=== PATIENT | female | born 1965 | race Caucasian/White ===

== ENCOUNTER 2020-03-28 20:02 | Emergency (ER) | payer MEDICAID, MEDICARE ==
[~2020-03-28] VITALS: Ht 154.9 cm; Wt 79.7 kg
[~2020-03-28 20:02] MED LIST: INSU100V5 SQ-INSULIN; INSU100V8 SQ
--- NOTE | 2020-03-28 20:31 | NUR ---
PT TO ED WITH WHITE, DENIES N/V OR SENSITIVITY TO LIGHT. PT REPORTS HX OF DIABETES, HASNT DONE BS CHECK SINCE FEBRUARY. DENIES ANY OTHER C/O AT THIS TIME. TRIED NORCO AND CBD AT HOME WITHOUT RELEIF. PT CONNECTED TO MONITORING, CALL LIGHT WITHIN REACH. ALL SAFETY MEASURES IN PLACE.
--- NOTE | 2020-03-28 20:38 | NUR ---
PT NOW ALSO REPORTING VAGINAL ITCHING AND BURNING SENSATION WITH WHITE DISCHARGE.
[2020-03-28] MEDS ORDERED: SODIUM CHLORIDE FLUSH 10ML SYR IVF ONE (21:00)
[2020-03-28] MEDS ORDERED: SODIUM CHLORIDE 0.9% 1,000ML IVBOLUS ONE (21:00)
[2020-03-28] MEDS ORDERED: FLUCONAZOLE 100 MG TABLET PO ONE (21:00)
[2020-03-28] MEDS ORDERED: KETOROLAC 30 MG/1 ML IVPush ONE (21:00)
[2020-03-28] MEDS ORDERED: DIPHENHYDRAMINE 50 MG/ML, 1ML IVPush ONE (21:00)
[2020-03-28] MEDS ORDERED: PROCHLORPERAZINE 5 MG/ML, 2ML IVPush ONE (21:00)
[2020-03-28] MEDS ORDERED: PROCHLORPERAZINE 5 MG/ML, 2ML ONE (21:19)
[2020-03-28] MEDS ORDERED: DIPHENHYDRAMINE 50 MG/ML, 1ML ONE (21:20)
[2020-03-28] MEDS ORDERED: FLUCONAZOLE 100 MG TABLET ONE (21:20)
[2020-03-28] MEDS ORDERED: KETOROLAC 30 MG/1 ML ONE (21:20)
[2020-03-28 22:13] LABS: BASOPHILS # (AUTO) 0.02 x10^3/uL (0-0.1); BASOPHILS % (AUTO) 1 % (0-1); EOSINOPHILS # (AUTO) 0.09 x10^3/uL (0-0.4); EOSINOPHILS % (AUTO) 2 % (1-7); LYMPHOCYTES # (AUTO) 1.94 x10^3/uL (1-3.4); LYMPHOCYTES % (AUTO) 39 % (22-44); MD NO; MEAN CORPUSCULAR HEMOGLOBIN 28.4 pg (27.0-34.8); MEAN CORPUSCULAR HGB CONC 32.5 g/dL (32.4-35.8); MEAN CORPUSCULAR VOLUME 87.3 fL (80-100); MEAN PLATELET VOLUME 10.5 fL (7.4-10.4); MONOCYTES # (AUTO) 0.36 x10^3/uL (0.2-0.8); MONOCYTES % (AUTO) 7 % (2-9); NEUTROPHILS # (AUTO) 2.54 x10^3/uL (1.8-6.8); NEUTROPHILS % (AUTO) 51 % (42-75); PLATELET COUNT 136 x10^3/uL (130-400); RED BLOOD COUNT 4.66 x10^6/uL (3.82-5.3); RED CELL DISTRIBUTION WIDTH 12.8 % (9.6-15.2)
[2020-03-28 22:20] LABS: MICROSCOPIC AUTO
[2020-03-28 22:24] LABS: ALANINE AMINOTRANSFERASE 30 U/L (12-78); ALBUMIN 3.6 g/dL (3.4-5.0); ANION GAP 8 mmol/L (5-15); CALCIUM 8.6 mg/dL (8.5-10.1); CHLORIDE 103 mmol/L (98-107); CREATININE 1.07 mg/dL (0.55-1.02)
[2020-03-28 22:27] LABS: ALKALINE PHOSPHATASE 104 U/L (45-117); BILIRUBIN,TOTAL 0.6 mg/dL (0.2-1.0); TOTAL PROTEIN 7.9 g/dL (6.4-8.2)
--- NOTE | 2020-03-28 22:35 | NUR ---
PT RESTING ON [facility]. MONTORING IN PLACE, CALL LIGHT WITHIN REACH.
--- NOTE | 2020-03-28 22:57 | NUR ---
[place] RN: FSBS completed. Provider, Yadira, aware of FSBS 316. No new orders received and this time.
[2020-03-28] MEDS ORDERED: hydrALAzine 20 MG/ML, 1ML IV ONE (23:00)
[2020-03-28] MEDS ORDERED: hydrALAzine 20 MG/ML, 1ML ONE (23:01)
--- NOTE | 2020-03-28 23:05 | NUR ---
PT TO IMAGING AT THIS TIME.
[2020-03-29 00:33] VITALS: BP 160/61
== END 2020-03-29 00:35 | disposition home or self-care (01) ==
LOC: ED 22:35
DX: R51 Headache (principal); E11.65 Type 2 diabetes mellitus with hyperglycemia; B37.3 Candidiasis of vulva and vagina; J32.0 Chronic maxillary sinusitis; I10 Essential (primary) hypertension; M79.7 Fibromyalgia
CPT/HCPCS: 36415; 70450; 80053; 81001; 82962; 85025; 96361; 96374; 96375; 99285; J0360; J0780; J1200; J1885; J7030

== ENCOUNTER 2020-04-05 11:36 | Emergency (ER) | payer MEDICARE ==
[~2020-04-05] VITALS: Ht 154.9 cm; Wt 78.1 kg
--- NOTE | 2020-04-05 12:27 | NUR ---
NUTRITION PROFESSOR: PT TO ROOM FROM LOBBY
--- NOTE | 2020-04-05 12:27 | NUR ---
PT WALKED BACK TO ROOM
--- NOTE | 2020-04-05 13:23 | NUR ---
REPORT RECIEVED FROM FIONA LEBLANC. ASSUMED CARE OF PT. PT JONATHAN RESTING ON GURNEY. NO ACUTE DISTRESS NOTED. CALL LIGHT WITHIN REACH. WILL CONT TO MONITOR PT.
--- NOTE | 2020-04-05 14:07 | NUR ---
THIS IS A 55 YO FEMALE C/O EXACERBATION OF CHRONIC BACK/LEG PAIN. PT AO X 4. SKIN WARM AND DRY. RESP EVEN AND UNLABORED. PT AWARE WE ARE WAITING FOR ERMD EVAL/ORDERS.
[2020-04-05] MEDS ORDERED: KETOROLAC 30 MG/1 ML ONE (14:26)
[2020-04-05] MEDS ORDERED: METHOCARBAMOL 750 MG TABLET ONE (14:26)
[2020-04-05] MEDS ORDERED: METHOCARBAMOL 750 MG TABLET PO ONE (14:30)
[2020-04-05] MEDS ORDERED: KETOROLAC 30 MG/1 ML IM ONE (14:30)
[2020-04-05 15:06] VITALS: BP 171/89
== END 2020-04-05 15:08 | disposition home or self-care (01) ==
LOC: ED 14:50
DX: G89.29 Other chronic pain (principal); M54.5 Low back pain; I10 Essential (primary) hypertension; E11.9 Type 2 diabetes mellitus without complications
CPT/HCPCS: 96372; 99283; J1885

== ENCOUNTER 2020-05-22 11:04 | Emergency (ER) | payer MEDICAID, MEDICARE ==
[~2020-05-22] VITALS: Ht 157.5 cm; Wt 76.4 kg
[2020-05-22] MEDS ORDERED: SODIUM CHLORIDE 0.9% 1,000ML IVBOLUS ONE (11:30)
[2020-05-22] MEDS ORDERED: SODIUM CHLORIDE FLUSH 10ML SYR IVF ONE (11:30)
[2020-05-22] MEDS ORDERED: IBUP-1223 PO (11:50)
[2020-05-22] MEDS ORDERED: HYDR-3246 PO (11:50)
--- NOTE | 2020-05-22 11:54 | NUR ---
Pt here for prescription for glucose test strips. States that she is new to the area and has not established a PCP. Pt arrives hyperglycemic and hypertensive. Denies N/V. States chronic back pain which is controlled with medication. Pt has no comlaints at this time. Fluids infusing, blood sent to lab. Provided with blanket. Will monitor.
[2020-05-22 11:55] LABS: BASOPHILS # (AUTO) 0.01 x10^3/uL (0-0.1); BASOPHILS % (AUTO) 0 % (0-1); EOSINOPHILS # (AUTO) 0.09 x10^3/uL (0-0.4); EOSINOPHILS % (AUTO) 2 % (1-7); LYMPHOCYTES # (AUTO) 1.39 x10^3/uL (1-3.4); LYMPHOCYTES % (AUTO) 26 % (22-44); MD NO; MEAN CORPUSCULAR HEMOGLOBIN 29.6 pg (27.0-34.8); MEAN CORPUSCULAR HGB CONC 34.2 g/dL (32.4-35.8); MEAN CORPUSCULAR VOLUME 86.5 fL (80-100); MEAN PLATELET VOLUME 10.8 fL (7.4-10.4); MONOCYTES # (AUTO) 0.22 x10^3/uL (0.2-0.8); MONOCYTES % (AUTO) 4 % (2-9); NEUTROPHILS # (AUTO) 3.55 x10^3/uL (1.8-6.8); NEUTROPHILS % (AUTO) 68 % (42-75); PLATELET COUNT 130 x10^3/uL (130-400); RED BLOOD COUNT 4.81 x10^6/uL (3.82-5.3); RED CELL DISTRIBUTION WIDTH 12.4 % (9.6-15.2)
--- NOTE | 2020-05-22 12:31 | NUR ---
Pt sleeping, appears comfortable.
[2020-05-22 12:35] LABS: ALBUMIN 3.1 g/dL (3.4-5.0); ANION GAP 5 mmol/L (5-15); CALCIUM 8.4 mg/dL (8.5-10.1); CHLORIDE 108 mmol/L (98-107); CREATININE 0.81 mg/dL (0.55-1.02)
[2020-05-22 13:02] LABS: ACETONE, SERUM Trace (Negative)
[2020-05-22 13:38] VITALS: BP 160/75
== END 2020-05-22 15:40 | disposition home or self-care (01) ==
LOC: ED 14:45
DX: E11.65 Type 2 diabetes mellitus with hyperglycemia (principal); I10 Essential (primary) hypertension; M79.7 Fibromyalgia; Z91.19 Patient's noncompliance with other medical treatment and regimen
CPT/HCPCS: 36415; 80048; 82010; 82040; 82962; 85025; 96360; 99283; J7030

== ENCOUNTER 2020-06-19 09:24 | Outpatient (CLI) | payer MEDICARE ==
[~2020-06-19 09:24] MED LIST changes: +HYDR-3246 PO; +IBUP-1223 PO
== END 2020-06-19 23:59 | disposition home or self-care (01) ==
LOC: RAD 09:24
DX: I66.22 Occlusion and stenosis of left posterior cerebral artery (principal); M62.838 Other muscle spasm; I65.23 Occlusion and stenosis of bilateral carotid arteries; I67.5 Moyamoya disease
CPT/HCPCS: 70544; 70549; 70551; 72050

== ENCOUNTER 2020-07-04 16:24 | Emergency (ER) | payer MEDICARE ==
[~2020-07-04] VITALS: Ht 157.5 cm; Wt 79.6 kg
[2020-07-04 17:26] LABS: BASOPHILS % (AUTO) 1 % (0-1); EOSINOPHILS % (AUTO) 1 % (1-7); LYMPHOCYTES % (AUTO) 26 % (22-44); MD NO; MEAN CORPUSCULAR HEMOGLOBIN 28.8 pg (27.0-34.8); MEAN CORPUSCULAR HGB CONC 33.1 g/dL (32.4-35.8); MEAN PLATELET VOLUME 10.4 fL (7.4-10.4); MONOCYTES % (AUTO) 6 % (2-9); NEUTROPHILS % (AUTO) 66 % (42-75); PLATELET COUNT 164 x10^3/uL (130-400); RED BLOOD COUNT 4.63 x10^6/uL (3.82-5.3); RED CELL DISTRIBUTION WIDTH 12.7 % (9.6-15.2)
[2020-07-04 17:35] LABS: ALBUMIN 3.2 g/dL (3.4-5.0); ANION GAP 8 mmol/L (5-15); CHLORIDE 104 mmol/L (98-107)
[2020-07-04 17:40] LABS: ALANINE AMINOTRANSFERASE 17 U/L (12-78); ALKALINE PHOSPHATASE 88 U/L (45-117); BILIRUBIN,TOTAL 0.3 mg/dL (0.2-1.0); CREATININE 0.96 mg/dL (0.55-1.02); TOTAL PROTEIN 7.6 g/dL (6.4-8.2)
--- NOTE | 2020-07-04 18:44 | NUR ---
first contact with pt. pt c/o left sided neck pain. pt stated"i have a pinched nerve for 3 days. i can't use my neck. i also have a choronic back pain as well." pt denies any other sx. pt's aox4. resps even and unlabored. bp/spo2 monitors in place. call light within reach.
--- NOTE | 2020-07-04 18:51 | NUR ---
report given to pauline gonzalez.
[2020-07-04] MEDS ORDERED: BUPIVACAINE 0.25% ONE (19:10)
[2020-07-04] MEDS ORDERED: DIAZEPAM 5 MG TABLET ONE (19:10)
[2020-07-04] MEDS ORDERED: DIAZEPAM 5 MG TABLET PO ONE (19:30)
[2020-07-04] MEDS ORDERED: TRIAMCINOLONE ACETONIDE 40 MG/ML, 1ML IM ONE (19:30)
[2020-07-04] MEDS ORDERED: BUPIVACAINE/PF 0.5% INFIL ONE (19:30)
[2020-07-04 20:41] VITALS: BP 140/64
== END 2020-07-04 20:43 | disposition home or self-care (01) ==
LOC: ED 20:00
DX: S16.1XXA Strain of muscle, fascia and tendon at neck level, initial encounter (principal); E11.65 Type 2 diabetes mellitus with hyperglycemia; M62.838 Other muscle spasm; I10 Essential (primary) hypertension; G43.909 Migraine, unspecified, not intractable, without status migrainosus; M19.90 Unspecified osteoarthritis, unspecified site; G89.29 Other chronic pain; Z87.891 Personal history of nicotine dependence; X58.XXXA Exposure to other specified factors, initial encounter; Y93.89 Activity, other specified; Y92.89 Other specified places as the place of occurrence of the external cause; Y99.8 Other external cause status
CPT/HCPCS: 20552; 36415; 80053; 85025; 99284; J3301; S0020

== ENCOUNTER → 2020-07-05 | Outpatient (CLI) | payer MEDICARE | END | disposition home or self-care (01) | LOC: CFH 13:20 | PROVIDERS: ATTEND Nurse Practitioner Primary Care | DX: M51.36 Other intervertebral disc degeneration, lumbar region (principal) | CPT/HCPCS: 72148 ==

== ENCOUNTER 2020-07-15 16:56 | Emergency (ER) | payer MEDICARE ==
[~2020-07-15] VITALS: Ht 157.5 cm; Wt 77.1 kg
[2020-07-15 17:00] VITALS: BP 147/70
--- NOTE | 2020-07-15 17:55 | NUR ---
Patient/Caregiver given discharge instructions and they have confirmed that they understand the instructions. Patient ambulatory with steady gait.
== END 2020-07-15 17:57 | disposition home or self-care (01) ==
LOC: ED 17:16
DX: S16.1XXA Strain of muscle, fascia and tendon at neck level, initial encounter (principal); I10 Essential (primary) hypertension; E11.65 Type 2 diabetes mellitus with hyperglycemia; Z87.891 Personal history of nicotine dependence; W22.8XXA Striking against or struck by other objects, initial encounter; Y93.89 Activity, other specified; Y92.89 Other specified places as the place of occurrence of the external cause; Y99.8 Other external cause status
CPT/HCPCS: 99283

== ENCOUNTER 2020-12-28 19:36 | Emergency (ER) | payer MEDICARE, MEDICAID ==
[~2020-12-28] VITALS: Ht 157.5 cm; Wt 80.9 kg
[~2020-12-28 19:36] MED LIST changes: -HYDR-3246 PO; +HYDR-3248 PO
[2020-12-28 21:36] LABS: MEAN CORPUSCULAR HEMOGLOBIN 29.2 pg (27.0-34.8); MEAN CORPUSCULAR HGB CONC 33.8 g/dL (32.4-35.8); MEAN PLATELET VOLUME 10.1 fL (7.4-10.4); PLATELET COUNT 153 x10^3/uL (130-400); RED BLOOD COUNT 4.94 x10^6/uL (3.82-5.3); RED CELL DISTRIBUTION WIDTH 12.9 % (9.6-15.2)
[2020-12-28 21:48] LABS: ALBUMIN 3.6 g/dL (3.4-5.0); ANION GAP 5 mmol/L (5-15); CHLORIDE 99 mmol/L (98-107); CREATININE 1.01 mg/dL (0.55-1.02)
--- NOTE | 2020-12-28 22:00 | NUR ---
PT TO ROOM FROM LOBBY
[2020-12-28 22:29] LABS: MD YES
[2020-12-28] MEDS ORDERED: FLUCONAZOLE 100 MG TABLET PO ONE (22:30)
[2020-12-28 22:34] LABS: EOS#(MANUAL) 0.16 x10^3/uL (0.0-0.4); EOS% (MANUAL) 3 % (1-7); LYMPH#(MANUAL) 1.66 x10^3/uL (1-3.4); LYMPHS% (MANUAL) 32 % (22-44); METAMYELOCYTES# (MANUAL) 0.05 x10^3/uL (0-0); METAMYELOCYTES% (MANUAL) 1 % (0-1); MONOS#(MANUAL) 0.21 x10^3/uL (0.3-2.7); MONOS% (MANUAL) 4 % (2-9); REACTIVE LYMPHS # (MANUAL) 0.05 x10^3/uL (0-0); REACTIVE LYMPHS % (MANUAL) 1 % (0-0); SEG#(MANUAL) 3.07 x10^3/uL (1.8-6.8); SEGS% (MANUAL) 59 % (42-75)
[2020-12-28 22:35] LABS: <PLATELET ESTIMATE> ADEQUATE; <RBC MORPHOLOGY> NORMAL; LARGE PLATELETS 1+
[2020-12-28] MEDS ORDERED: FLUCONAZOLE 100 MG TABLET ONE (22:37)
--- NOTE | 2020-12-28 22:43 | NUR ---
pt ambulatory with steady gait to bathroom to provide urine sample.
[2020-12-28 23:05] LABS: MICROSCOPIC NOT IND
[2020-12-29 00:34] VITALS: BP 112/62
--- NOTE | 2020-12-29 00:34 | NUR ---
Patient given discharge instructions and they have confirmed that they understand the instructions. Patient to d/c desk with use of personal wheelchair. Pt verbalized understanding of d/c instructions.
== END 2020-12-29 00:43 | disposition home or self-care (01) ==
LOC: ED 20:06
DX: N89.8 Other specified noninflammatory disorders of vagina (principal); B37.3 Candidiasis of vulva and vagina; R30.0 Dysuria; I10 Essential (primary) hypertension; E11.65 Type 2 diabetes mellitus with hyperglycemia
CPT/HCPCS: 36415; 80048; 81003; 82040; 85025; 99283

== ENCOUNTER 2021-01-16 10:54 | Emergency (ER) | payer MEDICARE, MEDICAID ==
[~2021-01-16] VITALS: Ht 157.5 cm; Wt 79.3 kg
--- NOTE | 2021-01-16 11:08 | NUR ---
PT C/O OF PCP LEAVING [facility] AND RUNNING OUT OF HER INSULIN. PT STATES THAT SHE HAS LOTS OF MEDICAL CONDITIOONS AND WANTS TO HAVE HER MEDS REFILLED. ATTACHED TO MONITORS. PT IN NO ACUTE DISTRESS. VSS.
--- NOTE | 2021-01-16 11:14 | NUR ---
PT REQUESTING REGULAR INSULIN AND LANTUS. STATES HER LAST DOSE WAS HIS MORNING.
--- NOTE | 2021-01-16 11:21 | NUR ---
PT BS IN TRIAGE WAS 298.
[2021-01-16 11:49] VITALS: BP 158/77
== END 2021-01-16 11:52 | disposition home or self-care (01) ==
LOC: ED 11:30
DX: E11.9 Type 2 diabetes mellitus without complications (principal); Z76.0 Encounter for issue of repeat prescription
CPT/HCPCS: 82962; 99282; 99283